=== PATIENT | female | born 1945 | race Caucasian/White ===

== ENCOUNTER → 2024-08-23 | Outpatient (CLI) | payer OTHER, SELFPAY ==
--- NOTE | 2024-08-23 09:59 | US_ITS ---
EXAM: Ultrasound abdomen limited with elastography CLINICAL HISTORY: Jaundice COMPARISON: None available TECHNIQUE: Ultrasound abdomen limited with elastography FINDINGS: Liver stiffness 18.2 kPa, 2.5 milliseconds Visualized portions of the pancreas appear within limits. The liver measures 16.7 cm and appears diffusely increased in echogenicity and heterogeneous which can be seen with hepatic steatosis or other hepatocellular disease. Liver surface contour appears smooth. Flow within the portal vein appears hepatopetal as expected Marked diffusely appearing intrahepatic biliary ductal dilation noted. It is difficult to clearly identify the common bile duct and what is measured measures 3 mm although limited and difficult. Gallbladder is not identified. Correlate with surgical history. The right kidney measures 9.8 x 4.7 x 3.5 cm in length without hydronephrosis. No free fluid seen. US/ABD Limited w/ Elastography IMPRESSION: Marked diffuse appearing intrahepatic biliary ductal dilation. The common bile duct is not definitely identified as above. Findings are concerning for a central obstructing process and requires further correlation with LFTs and alkaline phosphatase, recommend GI consult. May further characterize with multiphasic liver CT or MR I. Liver stiffness 18.2 kPa, Metavir staging L3-F4, compatible with [id number] janell liver disease. The liver measures 16.7 cm and appears diffusely increased in echogenicity and heterogeneous which can be seen with hepatic steatosis or other hepatocellular disease. Liver surface contour appears smooth . The gallbladder is not identified. Correlate with surgical history. Reading Location: [id number]
== END | disposition home or self-care (01) ==
PROVIDERS: PCP Nurse Practitioner Family; Referring Provider Nurse Practitioner Family; Visit Provider Nurse Practitioner Family
DX: R17 Unspecified jaundice (principal)
CPT/HCPCS: 76705; 76981

== ENCOUNTER → 2024-09-08 | Outpatient (CLI) | payer OTHER, SELFPAY ==
--- NOTE | 2024-09-08 11:05 | CT_ITS ---
PROCEDURE: CT ABD/PELVIS W/WO CONTRAST 09/08/2024 REASON FOR EXAM: JAUNDICE, HEPATOMEGALY, DILATED BILIARY DUCT. Liver fibrosis. TECHNIQUE: Abdomen and pelvis CT with intravenous contrast. Contiguous axial scans of 3.75 mm slice thicknesses. Sagittal and coronal reconstruction images were obtained. One or more dose reduction techniques were used (e.g., automated exposure control, adjustment of mA and/or kv according to patient size, use of iterative reconstruction technique). PATIENT PREPARATION: Per protocol ORAL CONTRAST TYPE: Not given. AMOUNT: 0 mL CONTRAST: Isovue-300 VOLUME: 70 mL RADIATION DOSE SUMMARY: CTDlvol: 9.73 mGy DLP: 652.90 mGycm COMPARISON: Ultrasound abdomen limited dated 08/23/2024. FINDINGS: Lung bases: Suspect mild hepatomegaly. Liver: Normal in size. Marked intrahepatic ductal dilatation is seen throughout the liver. An area of decreased attenuation is seen in the caudate lobe region measuring 3.3 x 2.6 cm, axial image 25. Gallbladder: Apparently surgically absent. Spleen: Normal in size. No masses. Pancreas: Ductal dilatation. No pancreatic masses. Adrenals: Unremarkable Kidneys: Multiple cysts, left kidney, largest measuring 1.5 cm. No hydronephrosis. Symmetrical excretion. Bladder: Unremarkable. Reproductive Organs: Unremarkable. Bowel: Unremarkable. Appendix: Unremarkable. Lymph nodes: No suspicious adenopathy. Vasculature: Phleboliths in the pelvis. Peritoneum / Retroperitoneum: No masses. No free fluid. No free air. Anterior abdominal wall: Unremarkable. Bones: Mild multilevel spondylosis. CT/CT Abd/Pelvis W/WO Contrast IMPRESSION: 1. Marked biliary ductal dilatation is redemonstrated and was also noted on a recent limited ultrasound of the abdomen. 2. A hypodense area in the region of the caudate lobe is concerning for a mass , likely the causative agent for the biliary obstruction. Can not exclude carcinoma. 3. Suspicion of mild hepatomegaly. 4. Multiple left renal cysts. Reading Location: [id number] [id number]
[2024-09-08 12:11] LABS: Absolute Neutrophil Count 6.4 X10^3/uL (2.0-7.7); Basophil# 0.06 X10^3/uL; Basophil% 0.8 % (0-1); Eosinophil# 0.08 X10^3/uL; Hematocrit 35.9 % (37-47); Lymphocyte % 11.3 % (19-41); Mean Corp Hgb Conc 36.2 g/dL (32-36); Mean Corpuscular Hgb 26.9 pg (27.0-32.0); Mean Corpuscular Volume 74.2 fL (81-99); Monocyte# 0.55 X10^3/uL; Monocyte% 6.9 % (0-10); NRBC Flagged by Analyzer 0 % (0-5); Neutrophil # 6.36 X10^3/uL (2.7-7.7); Neutrophil % 79.4 % (47-70); POSITIVE MORPHOLOGY YES; Platelet Count 368 K/mm3 (150-450); RBC Distribution Width CV 32.9 % (11.6-14.6); Red Blood Count 4.84 M/mm3 (4.2-5.4)
[2024-09-08 12:24] LABS: International Normalized Ratio 1.2; Prothrombin Time (Protime)PT. 15.2 SECONDS (11.7-14.9)
[2024-09-08 12:38] LABS: Differential Indicated SCAN CRITERIA MET
[2024-09-08 12:41] LABS: Hemoglobin A1c 4.9 % (<=5.6)
[2024-09-08 12:42] LABS: Target Cells 2+
[2024-09-08 12:43] LABS: Ammonia 24.3 umol/L (11-51); Anisocytosis 2+
[2024-09-08 13:12] LABS: CPK Total, Creatine Kinase 53 U/L (24-195); Ferritin 473 ng/mL (22-378); Hepatitis B Surface Antibody Nonreactive; Hepatitis B Surface Antigen Nonreactive (Nonreactive); Hepatitis C Antibody Nonreactive (Nonreactive); Thyroid Stim Hormone (TSH) 0.961 uIU/mL (0.300-4.200)
[2024-09-08 13:30] LABS: LDH 230 U/L (84-246)
[2024-09-08 13:39] LABS: ALB/GLOB Ratio 1.3 RATIO (0.9-2.4); AST(SGOT) 254 U/L (<=31); Alanine Aminotransfer ALT/SGPT 196 U/L (<=34); Albumin, Serum 3.2 g/dL (3.4-4.8); Alkaline Phosphatase 1561 U/L (35-104); Anion Gap 12 (5-15); BUN 12 mg/dL (4-19); BUN/Creat Ratio 18.2 RATIO (10-20); Calcium,Total 9.4 mg/dL (7.6-11.0); Carbon Dioxide 24.9 mmol/L (21.0-32.0); Chloride 85 mmol/L (98-108); Creatinine, Serum 0.63 mg/dL (0.70-1.20); EST Glomerular Filtration Rate 90 (>60); Globulin 2.4 g/dL (2.2-4.2); Glucose 95 mg/dL (70-99); Potassium 3.5 mmol/L (3.3-5.1); Protein, Total 5.6 g/dL (5.9-8.4); Sodium Level 122 mmol/L (133-145)
[2024-09-11 15:08] LABS: Anti-Centromere B Ab <0.2 AI (0.0-0.9); Anti-Chromatin <0.2 AI (0.0-0.9); Anti-Jo <0.2 AI (0.0-0.9); Anti-Mitochondrial AB <20.0 Units (0.0-20.0); Anti-Scleroderma-70 AB <0.2 AI (0.0-0.9); Anti-dsDNA Ab <1 IU/mL (0-9); RNP Ab <0.2 AI (0.0-0.9); SJOGREN'S Anti-SS-A test < 0.2 AI (0.0-0.9); SJOGREN'S Anti-SS-B test < 0.2 AI (0.0-0.9); Smith Ab <0.2 AI (0.0-0.9)
[2024-09-14 04:07] LABS: Angiotensin Convert Enzyme 109 U/L (14-82); Anti-Smooth Muscle ABS 10 Units (0-19); Ceruloplasmin 35.8 mg/dL (19.0-39.0); Copper, Serum or Plasma 133 ug/dL (80-158); Cytoplasmic Ab (C-ANCA) <1:20 titer (Neg:<1:20); GGTP 694 IU/L (0-60); Hepatitis A AB, Total Positive (Negative); Immunoglobulin A 170 mg/dL (64-422); Perinuclear Ab (P-ANCA) <1:20 titer (Neg:<1:20); Transferrin 305 mg/dL (192-364); t-Transglutaminase IgA <2 U/mL (0-3)
== END | disposition home or self-care (01) ==
LOC: CT 10:55
PROVIDERS: PCP Nurse Practitioner Family
DX: E80.6 Other disorders of bilirubin metabolism (principal); R93.2 Abnormal findings on diagnostic imaging of liver and biliary tract; R16.0 Hepatomegaly, not elsewhere classified; E78.5 Hyperlipidemia, unspecified; K74.00 Hepatic fibrosis, unspecified
CPT/HCPCS: 36415; 74178; 80053; 82105; 82140; 82164; 82390; 82525; 82550; 82728; 82784; 82977; 83036; 83516; 83615; 84443; 84466; 85025; 85610; 86037; 86140; 86225; 86235; 86706; 86708; 86803; 87340; Q9967; A4216